=== PATIENT | female | born 1950 | race Caucasian/White ===

== ENCOUNTER 2017-10-25 21:18 | Inpatient (IN) | payer BC ==
[~2017-10-25] VITALS: Ht 152.4 cm; Wt 74.2 kg
[~2017-10-25 21:18] MED LIST: ASCORBIC ACID500 M1 PO; ATIVAN0.5 MG PO; ATROVENT 00.5 MG/2.5 IH; COMBIVENT RESPIM4 GM IH; DECADRON4 M1 PO; IRON325 M1 PO; MEGA BIOTIN10000 MCG PO; PROTONIX40 MG PO; PROVENTIL,2.5 MG/3 M IH; SINGULAIR10 MG PO; SYMBICORT60 INHALAT IH; VITAMIN B-122500 MCG SL; ZOO CHEWS1 EACH PO
[2017-10-26] VITALS (10 sets, daily range): BP systolic 108–151; BP diastolic 65–89
[2017-10-26] MEDS ORDERED: SYMBICORT60 INHALAT IH (06:34)
[2017-10-27] VITALS (10 sets, daily range): BP systolic 92–139; BP diastolic 52–76
[2017-10-28 04:01] VITALS: BP 130/73
[2017-10-28 08:19] VITALS: BP 127/62
[2017-10-28 11:13] VITALS: BP 137/69
[2017-10-28 16:09] VITALS: BP 130/74
[2017-10-28 20:43] VITALS: BP 156/80
[2017-10-28 23:47] VITALS: BP 130/75
[2017-10-29 05:10] VITALS: BP 138/62
[2017-10-29 08:00] VITALS: BP 136/69
[2017-10-29] MEDS ORDERED: HYDROCODON-ACE1 EAC7 PO (08:27)
[2017-10-29] MEDS ORDERED: MEDROL DOSEPAK4 MG PO (08:28)
[2017-10-29 11:08] VITALS: BP 129/79
[2017-10-29 16:09] VITALS: BP 136/74
[2017-10-29 20:20] VITALS: BP 136/74
[2017-10-29 23:57] VITALS: BP 127/73
[2017-10-30 04:47] VITALS: BP 118/61
[2017-10-30 08:31] VITALS: BP 102/68
[2017-10-30 11:49] VITALS: BP 139/77
[2017-10-30 15:40] VITALS: BP 129/86
== END 2017-10-30 16:09 | DRG 26 ==
LOC: ENRESERV 21:18 → 2SOUTH 10-26 05:43 → 4WEST 10-26 05:43 → 2SOUTH 10-26 08:00 → EDSTATUS 10-26 08:00 → RAD 10-26 08:00 → ENRESERV 10-26 12:42 → 4WEST 10-26 15:04 → ENRESERV 10-27 06:34 → 3EAST 10-27 07:11
PROC: 00B00ZZ Excision of Brain, Open Approach (ICD-10-PCS; principal; 2017-10-26)
DX: C79.31 Secondary malignant neoplasm of brain (principal); G81.94 Hemiplegia, unspecified affecting left nondominant side; C34.11 Malignant neoplasm of upper lobe, right bronchus or lung; J44.9 Chronic obstructive pulmonary disease, unspecified; K21.9 Gastro-esophageal reflux disease without esophagitis; Z98.84 Bariatric surgery status; Z87.891 Personal history of nicotine dependence; Z86.711 Personal history of pulmonary embolism
CPT/HCPCS: 70450; 70553; 77021; 87641; 88160; 88305; 88307; 88341 TC; 88342 TC; 92610 GN; 94640; 94799; 97530 GO; C1713; J0131; J0330; J0690; J1100; J2060; J2250; J2405; J2710; J3010; J3480; J7643; J8540; Q0175